=== PATIENT | male | born 1980 | race Caucasian/White ===

== ENCOUNTER 2021-06-09 02:41 | Inpatient (IN) | payer BC, SELFPAY ==
[2021-06-09] VITALS (24 sets, daily range): BP systolic 113–153; BP diastolic 70–105; PULSE 48–93; RESP 12–20; TEMP 36.7–36.8; O2SAT 96–100; BMI 30.5
--- NOTE | 2021-06-09 02:33 | PCM.HP.STD ---
HPI - General General Date of Admission: 06/09/21 HPI Narrative KANG SALMON, is a 40 M who presents to the emergency room from [facility] due to chest pain. Patient was laying on his couch at 6:30 this evening when he experienced epigastric and pain that radiated substernally and immediately caused nausea and vomiting and then turned into pain that radiated from his chest to both arms all the way to his wrists. He then sought attention in the emergency room where they was treated with nitroglycerin x3 doses and he states that after his third dose he found some relief from what he calls a chest pain of 4 out of 10 down to 3/10. To most folks the patient had denied smoking in his history however, he did confide in me that he has been vaping recently due to increased stress mostly at his workplace. 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 On his transport from [facility] to our facility the patient experienced relief of his pain symptoms but states since arriving he has had some resumption of that pain mostly in his left upper extremity. EKG is unchanged from his previous EKG in [facility]. His initial troponin in [facility] was less than 0.02 and a second was 0.06. We will obtain a stat troponin here and determine the next course of action as to whether to do a stress test or cardiac consult for catheterization. The patient julio as a father who had heart disease in his 50s. PFSH Home Medications NK 06/09/21 [History Last Taken Unknown] Allergy/AdvReac Type Severity Reaction Status Date / Time erythromycin base Allergy PT UNSURE Verified 06/09/21 01:47 OF REACTION Social History Smoking Status: Former smoker ROS Constitutional Constitutional: Denies anorexia, chills or fatigue Eyes Eyes: Denies blurry vision ENT HEENT: Denies abnormal hearing Cardiovascular Cardiovascular: Reports chest pain; Denies syncope Respiratory/Chest Respiratory/Chest: Denies cough Gastrointestinal Gastrointestinal: Reports abdominal pain, nausea and vomiting Genitourinary Genitourinary: Denies dysuria Musculoskeletal Musculoskeletal: Denies back pain Integumentary Integumentary: Denies dry skin Neurologic Neurologic: Denies abnormal gait Psychiatric Psychiatric: Reports anxiety Endocrine Endocrinology: Denies change in body appearance Vital Signs Vital Signs Vital Signs: 06/09/21 01:45 06/09/21 02:14 Temperature 98.1 F Temperature Source Oral Pulse Rate 77 82 Respiratory Rate 18 Blood Pressure 153/105 H Blood Pressure Mean 121 Blood Pressure Source Monitor Blood Pressure Position Semi-Fowlers Blood Pressure Location Right Arm Pulse Ox 100 Oxygen Delivery Method Room Air Weight Weight: 225 lb 4.999 oz Body Mass Index (BMI) 30.5 Physical Exam Const oriented x3 and no apparent distress General Appearance: cooperative HEENT normocephalic and head/scalp atraumatic Eyes PERRL Neck supple Lymph Lymphatic: no lymphadenopathy noted Resp normal respiratory effort and clear to auscultation bilaterally Cardio regular rate, regular rhythm, S1 normal heart sound and S2 normal heart sound GI normal to inspection, nondistended, normoactive bowel sounds Extremity no clubbing, cyanosis or edema Skin General Skin Exam: turgor normal Neuro CN's II-XII intact bilaterally Psych affect normal Assessment & Plan Assessment/Plan (1) Chest pain: PLAN: 1 chest pain rule out myocardial infarction?admit patient to progressive care unit obtain third troponin stat to determine if we going to do a stress test or cardiac consult for catheterization. The patient does have risk factors of nicotine dependency with vaping, family member with early heart disease in his father. He admits to recent high levels of stress at work. If stress test is negative patient can be discharged home however will need to address his epigastric pain and stress that may be gastritis. Will order the patient morphine, oxygen, nitroglycerin, aspirin per routine 2. DVT prophylaxis?low molecular weight heparin Charges/Coding Visit Charges OBSV E&M: 88860 Initial observation care L2
[2021-06-09 03:07] LABS: Troponin-I HS 1026 pg/mL (3.0-78.0)
[2021-06-09] MEDS: 0.9% Normal Saline 1,000 ML 75 ML IV ×2 (03:47→15:11)
[2021-06-09] MEDS: 0.9% Saline Lock 10 ML Syringe IV (03:47)
[2021-06-09 06:01] LABS: Absolute Lymphocyte Count 1.63 X10^3/uL (0.83-4.51); Absolute Neutrophil Count 8.4 X10^3/uL (2.0-7.7); Basophil# 0.01 X10^3/uL; Basophil% 0.1 % (0-1); Hemoglobin 16.3 g/dL (13.0-16.5); Lymphocyte # 1.63 X10^3/ul (0.83-4.51); Lymphocyte % 15.6 % (19-41); Mean Corp Hgb Conc 35.4 g/dL (32-36); Mean Corpuscular Hgb 29.8 pg (27.0-32.0); Mean Corpuscular Volume 84.1 fL (80-94); Mean Platelet Vol. 10.1 fl (6.2-12.0); Monocyte# 0.42 X10^3/uL; NRBC Flagged by Analyzer 0 % (0-5); Neutrophil # 8.38 X10^3/uL (2.7-7.7); Neutrophil % 79.9 % (47-70); Platelet Count 219 K/mm3 (150-450); RBC Distribution Width CV 12.2 % (11.6-14.6); RBC Distribution Width SD 36.7 fl (35.1-43.9); Red Blood Count 5.47 M/mm3 (4.6-6.2); White Blood Count 10.5 K/mm3 (4.4-11.0)
[2021-06-09] MEDS: Aspirin 325 MG Tablet PO (06:13)
[2021-06-09 06:26] LABS: International Normalized Ratio 1.1; Prothrombin Time (Protime)PT. 13.1 SECONDS (11.7-14.9)
[2021-06-09 06:30] LABS: Anion Gap 4 (5-15); BUN 11 mg/dL (7-18); BUN/Creat Ratio 11.2 RATIO (10-20); Calcium,Total 9.4 mg/dL (8.5-10.1); Chloride 106 mmol/L (98-107); Creatinine, Serum 0.98 mg/dL (0.70-1.30); EST Glomerular Filtration Rate 90 mL/min (>60); Est Glom Filt Rate - Afr Amer 108 mL/min (>60); Estimated Creatinine Clearance 109.98 ml/min; Glucose 124 mg/dL (74-106); Potassium 4.2 mmol/L (3.5-5.1); Sodium Level 137 mmol/L (136-145)
--- NOTE | 2021-06-09 06:51 | PCM.CONS.C ---
Assessment & Plan Assessment/Plan (1) Chest pain: PLAN: The patient presented as for chest discomfort and no EKG changes but has significant cardiac enzyme abnormalities. I did talk with him about the risk factors involved and suggested to him that he would benefit from a cardiac catheterization. The risk benefits alternatives have been explained to him he understands and agrees to proceed. The cardiac catheterization done today demonstrated the following: Normal left main coronary artery. Left anterior descending artery with mild diffuse disease. Left circumflex artery with mild diffuse disease. Dominant right coronary artery with 30% proximal stenosis in a posterior lateral vessel with a 95% subtotally occluded vessel with slow flow. Preserved left ventricular systolic function. Based on the above angiographic findings would recommend PCI to the above vessel. Above discussed with the patient who is in agreement. HPI Consult Data Date of Consult: 06/09/21 HPI Narrative HPI Narrative: KANG SALMON, is a 40 M who presents to the emergency room from [facility] due to chest pain. Patient was laying on his couch at 6:30 yesterday when he experienced epigastric and pain that radiated substernally and immediately caused nausea and vomiting and then turned into pain that radiated from his chest to both arms all the way to his wrists. He then sought attention in the emergency room where they was treated with nitroglycerin x3 doses and he states that after his third dose he found some relief from what he calls a chest pain of 4 out of 10 down to 3/10. To most folks the patient had denied smoking in his history however, he did confide in me that he has been vaping recently due to increased stress mostly at his workplace. 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 On his transport from [facility] to our facility the patient experienced relief of his pain symptoms but states since arriving he has had some resumption of that pain mostly in his left upper extremity. EKG is unchanged from his previous EKG in [facility]. His initial troponin in [facility] was less than 0.02 and a second was 0.06. He was transferred over here and his EKG was unremarkable but his troponin was markedly elevated. Currently he is pain-free. PFSH Home Medications NK 06/09/21 [History Last Taken Unknown] Allergy/AdvReac Type Severity Reaction Status Date / Time erythromycin base Allergy PT UNSURE Verified 06/09/21 01:47 OF REACTION Social History Smoking Status: Former smoker ROS Constitutional Constitutional: Denies fever(s) or weight loss Eyes Eyes: Reports systems reviewed and no addt'l complaints, except as documented ENT HEENT: Reports systems reviewed and no addt'l complaints, except as documented Cardiovascular Cardiovascular: Reports chest pain at rest; Denies chest pain with activity, dyspnea at rest, dyspnea on exertion, edema, palpitations or paroxysmal nocturnal dyspnea Respiratory/Chest Respiratory/Chest: Denies dyspnea on exertion, productive cough, shortness of breath at rest or shortness of breath with exertion Gastrointestinal Gastrointestinal: Reports nausea and vomiting; Denies change in bowel habits or weight changes Genitourinary Genitourinary: Denies difficulty urinating Musculoskeletal Musculoskeletal: Denies joint stiffness or muscle weakness Integumentary Integumentary: Denies lesions Neurologic Neurologic: Denies dizziness or syncope Psychiatric Psychiatric: Denies anxiety Endocrine Endocrinology: Denies excessive sweating or fatigue Hematologic/Lymphatic Hematologic/Lymphatic: Denies anemia Allergic/Immunologic Allergic/Immunologic: Denies seasonal rhinorrhea Physical Exam Const alert, oriented x3 and no apparent distress General Appearance: cooperative HEENT hearing grossly normal bilaterally Head and Scalp: atraumatic Eyes EOMs intact bilaterally Neck General: normal visual inspection Chest inspection of chest normal and palpation of chest normal Resp normal respiratory effort Auscultation: clear to auscultation bilaterally Cardio regular rate, regular rhythm, S1 normal heart sound and S2 normal heart sound Jugular Venous Distention: JVD GI normal to inspection, nondistended, normoactive bowel sounds Extremity normal capillary refill and no pedal edema Peripheral Pulses: Yes pulses 2+ throughout and femoral pulses present Skin no rashes or lesions noted Neuro oriented x3 and CN's II-XII intact bilaterally Psych Appearance: grossly normal and appropriate Risk Stratification Risk Stratification Applicable: Yes Age >/= 65: No >/= 3 CAD Risk Factors (HTN, HLD, DM, family hx of CAD, or current smoker): No Aspirin Use in the Past 7 Days: No Severe Angina (>/= episodes in 24 hours): No EKG ST Changes >/= 0.5mm: No Positive Cardiac Marker: Yes LORELEI Risk Stratification Score: 1 LORELEI % Risk: 5% Risk Objective Data Vital Signs: Vital Signs Temp Pulse Resp BP Pulse Ox 98.3 F 51 L 18 124/86 H 98 06/09/21 03:40 06/09/21 06:36 06/09/21 03:40 06/09/21 03:40 06/09/21 03:40 Oxygen Delivery Method Room Air Weight: 225 lb 4.999 oz Body Mass Index (BMI) 30.5 Lab / Micro Data Result Diagrams: 06/09/21 05:36 06/09/21 05:36 Labs: Laboratory Results - last 24 hr 06/09/21 02:40: Troponin I High Sens 1026 H* 06/09/21 05:36: WBC 10.5, RBC 5.47, Hgb 16.3, Hct 46.0, MCV 84.1, MCH 29.8, MCHC 35.4, RDW Std Deviation 36.7, RDW Coeff of Marialuisa 12.2, Plt Count 219, MPV 10.1, Immature Gran % (Auto) 0.400, Neut % (Auto) 79.9 H, Lymph % (Auto) 15.6 L, Brantley % (Auto) 4.0, Eos % (Auto) 0.0, Baso % (Auto) 0.1, Absolute Neuts (auto) 8.4 H, Absolute Lymphs (auto) 1.63, Nucleated RBC % 0 06/09/21 05:36: PT 13.1, INR 1.1 06/09/21 05:36: Sodium 137, Potassium 4.2, Chloride 106, Carbon Dioxide 27.0, Anion Gap 4 L, BUN 11, Creatinine 0.98, Estim Creat Clear Calc 109.98, Est GFR (MDRD) Af Amer 108, Est GFR (MDRD) Non-Af 90, BUN/Creatinine Ratio 11.2, Glucose 124 H, Calcium 9.4 06/09/21 05:36: Magnesium 2.0 Cardiology Labs/Tests 06/09/21 05:36: WBC 10.5, RBC 5.47, Hgb 16.3, Hct 46.0, MCV 84.1, MCH 29.8, MCHC 35.4, Plt Count 219, MPV 10.1, Immature Gran % (Auto) 0.400, Neut % (Auto) 79.9 H, Lymph % (Auto) 15.6 L, Brantley % (Auto) 4.0, Eos % (Auto) 0.0, Baso % (Auto) 0.1, Absolute Neuts (auto) 8.4 H, Nucleated RBC % 0 06/09/21 05:36: PT 13.1, INR 1.1 06/09/21 05:36: Sodium 137, Potassium 4.2, Chloride 106, Carbon Dioxide 27.0, Anion Gap 4 L, BUN 11, Creatinine 0.98, Est GFR (MDRD) Af Amer 108, Est GFR (MDRD) Non-Af 90, BUN/Creatinine Ratio 11.2, Glucose 124 H, Calcium 9.4 06/09/21 05:36: Magnesium 2.0 Rhythm: EKG: ECHO: Stress Test: Cardiac Cath: PCI: CT Surgery: Holter monitor: EPS: PPM: CXR: Chest CT Scan:
[2021-06-09 07:02] LABS: Troponin-I HS 4114 pg/mL (3.0-78.0)
--- NOTE | 2021-06-09 07:46 | NURSING ---
This RN called and gave report to MARQUIS Lemon at laboratory apparatus glass blower.
--- NOTE | 2021-06-09 09:01 | CL.D_ITS ---
Patient Name: KANG SALMON Study Date: 06/09/2021 Performing: Rodríguez Baeza MD Ht: 72.04 inches 183 cm : 1980 Wt: 224.87 lbs 102 kg Age: 40 Gender: male BSA: 2.24 PROCEDURE(S) PERFORMED DC01-(60185)LHC/COR/LV CLINICAL PROFILE AND INDICATIONS Indications: ACS <= 24 hrs Heart Failure: None Stress/Imaging Stress/Image Study Performed: No CONCLUSIONS Severe disease of the posterior lateral vessel of the right coronary artery with mild disease noted i n the left anterior descending artery and left circumflex artery RECOMMENDATIONS Referred for immediate PCI DESCRIPTION OF PROCEDURE The patient arrived to the procedure lab. The risks and benefits of the procedure as well as a full d escription of our services here and current unavailability of surgical backup were fully explained to the patient and/or their significant other prior to the catheterization. The Timeout was completed, verifying the correct patient and procedure. The patient's procedural site was prepped and draped in the usual fashion. Local anesthetic was given subcutaneously to right radial region with Lidocaine 2% . Using a modified Seldinger technique, arterial access was obtained via the right radial artery, a 6 Fr sheath was inserted. Right Coronary Artery selective angiography was then performed in multiple v iews using a 5 Fr. 4.0 Scarborough catheter. Left Coronary Artery selective angiography was performed in mu ltiple views using a 5 Fr. 4.0 Scarborough catheter. Left Ventriculography was performed in CASTANEDA projection using a 5 Fr. Pigtail catheter. LV to AO pullback pressures were then recorded. CORONARY ANGIOGRAPHY DOMINANCE: Right Dominant LEFT HEART ASSESSMENT Left Ventricular Ejection Fraction: by LV Gram 60 % Normal LV wall motion Normal Left Ventricular systolic function LEFT MAIN: Angiographically normal LEFT ANTERIOR DESCENDING ARTERY: Mild 30% proximal left anterior descending artery stenosis CIRCUMFLEX ARTERY: First tiny obtuse marginal branch with ostial stenosis and mid circumflex artery w ith mild disease but no high-grade obstructive disease RIGHT CORONARY ARTERY: PROX RCA: 30 % Stenosis MID RCA: Mild luminal irregularities less than 30% RT PLV: 95 % Stenosis COMPLICATIONS PROCEDURE MEDICATIONS Fentanyl 50 mcg IV Versed 1 mg IV Versed 1 mg IV Oxygen: 2 L/min via nasal cannula Benadryl 25 mg IV 06/09/2021 08:22:30 Brilinta 180 mg PO @ 06/09/2021 08:55:00 Heparin given IA 06/09/2021 08:35:53 Heparin 6000 unit(s) IV 06/09/2021 08:58:51 Solu-medrol 125 mg IV 06/09/2021 08:22:30 SUMMARY OF HEMODYNAMIC DATA Time AIR REST ECG 07:54:35 Art 184/95 (127) 08:19:38 AO 139/100 (120) SA 08:38:05 LV 137/17, 26 08:45:36 LV 130/15, 23 08:45:42 LV 138/17, 26 08:46:26 LVp 137/19, 27 08:46:36 AOp 147/96 (121) 08:46:41 Signed By Rodríguez Baeza MD On 06/09/2021 09:00:49 Rodríguez Baeza MD
--- NOTE | 2021-06-09 09:21 | CASEMGMT ---
According to the [facility] website, the following are in-network tertiary facilities: [facility], [facility], [facility], [facility], [facility], [facility], [facility], and . Ozzie CHO CM
--- NOTE | 2021-06-09 09:53 | PCI.CARDCATH ---
PCI Cardiac Cath Report PCI Report: 1. Successful PCI of 90% stenosis of proximal right posterolateral branch With predilatation using 2 x 12 mm balloon, followed by placement of drug-eluting stent MARCIO/Orsiro 2.25 x 18 mm Postdilated with 2.5 x 15 mm NC balloon. With reduction of stenosis from 90% to 0% and improvement of LORELEI flow from LORELEI I to LORELEI-3 flow. 2. Placement of TR band to right radial artery arteriotomy site. Consent; Risk and benefit of the procedure explained in detail to the patient elected to proceed informed consent obtained. Preprocedure diagnosis; 40-year-old patient who presented with symptoms of chest pain, has been under stress at his work And had significant family history of CAD father had a coronary artery stent. Based on the clinical presentation he underwent cardiac catheterization by his primary professor of environmental science Dr. Baeza Angiographic views had been reviewed and had high-grade lesion involving the proximal right posterolateral branch with a LORELEI I flow Had a large dominant RCA and had nonobstructive atherosclerosis involving the proximal circumflex and the mid LAD, left main: Normal LV systolic function is preserved. Interventional equipment used; 1. 6 Bermudian JR4 guide catheter 2. 0.014 BMW universal straight 190 cm wire 3. 0.014 run-through extra floppy 180 cm strut guidewire 4. 0.035 to 60 cm J exchange wire. 5. 2 x 12 mm balloon 6. 2.25 x 18 mm drug-eluting stent/MARCIO/Orsiro #7 2.5 x 15 mm NC Emerge balloon. Medication used in the [place] 1. Heparin a total of 9000 with an ACT level 237 given additional 2000 of heparin 2. Brilinta loaded with 180 mg stat in the [place] 3. Patient was given regular aspirin 325 mg. Access; 6 Bermudian sheath in the right radial artery Procedure in detail; We proceed with a 6 Bermudian JR4 guide advanced ascending aorta cannulated the right coronary ostium without difficulty Angiographic view obtained Then will proceed with a wire across the lesion in the posterolateral branch, followed by predilatation, followed by placement of a drug-eluting stent With the improvement of the LORELEI flow from LORELEI I to LORELEI III flow and reduction of stenosis from 90% to 0% Patient remained stable no symptoms of chest pain cardiac rehab nurse normal sinus and no complication in the [place] Conclusion and recommendation; 1. Successful PCI of high-grade proximal right posterolateral branch with the placement of drug-eluting stent 2. Patient to continue on DAPT Brilinta 90 mg twice daily and low-dose aspirin for 1 year. 3. Patient is scheduled for phase 1 cardiac rehab at [facility]/cardiology team 4. Patient to continue follow-up with the primary professor of environmental science Dr. Baeza for continuation of cardiac care plan Robin Lozada MD,FAC,[facility]
--- NOTE | 2021-06-09 10:00 | EKG12_ITS ---
Test Reason : POST PCI Blood Pressure : / mmHG Vent. Rate : 048 BPM Atrial Rate : 048 BPM P-R Int : 154 ms QRS Dur : 108 ms QT Int : 418 ms P-R-T Axes : 035 -13 014 degrees QTc Int : 373 ms Sinus bradycardia Otherwise normal ECG Confirmed by ARDEN AUSTIN, YANE ([id number]), development editor BETH MCCALL ([id number]) on 06/10/2021 8:53:45 AM Referred By: ELISA Confirmed By:YANE HER MD
--- NOTE | 2021-06-09 10:06 | ECHOD_ITS ---
Reason For Study: CHEST PAIN Procedure This was a 2D Doppler, Color Flow transthoracic echocardiogram. Exam performed portable in patient room. Left Ventricle Normal LV size. Left ventricular systolic function is normal. The estimated ejection fraction is 60 %. Normal diastology for age. No regional wall motion abnormalities noted. Right Ventricle Normal RV size. Normal systolic function. Atria Normal left atrium. Normal right atrium. Mitral Valve Normal mitral valve. Tricuspid Valve Normal tricuspid valve. Mild (1+) tricuspid valve insufficiency. Pulmonary artery systolic pressure is 30 mmHg. Aortic Valve Normal aortic valve. Trisinus/trileaflet aortic valve. Pulmonic Valve Normal pulmonic valve. Great Vessels Normal aortic root. The pulmonary artery is normal size. Normal inferior vena cava. Pericardium/Pleural No pericardial effusion. MMode/2D Measurements & Calculations LVIDd: 4.8 cm IVSd: 1.0 cm Ao root diam: 3.0 cm LVIDs: 2.9 cm LVPWd: 0.96 cm RVDd: 3.8 cm FS: 38.7 % LAV(MOD-bp): 43.3 ml LVAd ap4: 31.6 cm2 SV(MOD-sp4): 59.7 ml LAV(MOD-bp) Indexed: 19.3 ml/m2 LVLd ap4: 8.5 cm LAV(MOD-sp2): 41.4 ml EDV(MOD-sp4): 94.3 ml LAV(MOD-sp4): 39.3 ml EDV(sp4-el): 99.8 ml LVAs ap4: 17.0 cm2 LVLs ap4: 6.8 cm ESV(MOD-sp4): 34.6 ml ESV(sp4-el): 35.7 ml EF(MOD-sp4): 63.3 % EF(sp4-el): 64.2 % SV(sp4-el): 64.1 ml LA A4 area: 16.1 cm2 LA dimension(2D): 3.4 cm RA A4 area: 13.9 cm2 Time Measurements MV dec time: 0.15 sec Doppler Measurements & Calculations MV E max addi: 82.4 cm/sec Lat Peak E' Addi: 10.2 cm/sec Med Peak E' Addi: 9.1 cm/sec MV A max addi: 78.8 cm/sec E/E' lat: 8.1 E/E' med: 9.1 MV E/A: 1.0 Ao V2 max: 151.8 cm/sec LV V1 max: 125.5 cm/sec PA V2 max: 92.6 cm/sec Ao max P.2 mmHg LV V1 max P.3 mmHg TR max addi: 254.4 cm/sec TR max P.9 mmHg ECHO/Echo Complete Interpretation Summary Normal LV size. Left ventricular systolic function is normal. The estimated ejection fraction is 60 %. Pulmonary artery systolic pressure is 30 mmHg. Normal diastology for age. Ordering Physician: Diego Vallecillo Performed By: Zainab Sky RDCS
--- NOTE | 2021-06-09 10:30 | CRPH1.INST_ITS ---
General Education CAD and cardiac anatomy and function:: Patient communicates acknowledgment, Family communicates acknowledgment Explanation of diagnoses and procedures:: Patient communicates acknowledgment, Family communicates acknowledgment Sign/Symptoms of ND:: Patient communicates acknowledgment, Family communicates acknowledgment Antiplatelet therapy: Patient communicates acknowledgment, Family communicates acknowledgment Proper use of NTG-SL: Patient communicates acknowledgment, Family communicates acknowledgment Emergency procedures and activation of EMS: Patient communicates acknowledgment, Family communicates acknowledgment Compliance of all prescribed medications: Patient communicates acknowledgment, Family communicates acknowledgment Smoking Patient Nicotine/Smoking Risk Factors Are:: Non-smoker Recommendations Include:: Previous smoker; encourage continued cessation Nicotine/Smoking Response Code:: Patient communicates acknowledgment, Family communicates acknowledgment Dyslipidemia Recommendations Include:: Lipid profile not available Dyslipidemia Response Code:: Patient communicates acknowledgment, Family communicates acknowledgment Overweight/Obesity Patient Overweight/Obesity Risk Factors Are:: Obesity - > or = 30 Recommendations Include:: Weight loss of 5-10%, Reduced calorie diet, Exercise 5-7 times/week Overweight/Obesity:: Patient communicates acknowledgment, Family communicates acknowledgment Hypertension Patient Hypertension Risk Factors Are:: No documented hx of HTN Recommendations Include:: Maintain BP <130/85, DASH dietary guidelines, Decrease/maintain normal body weight, Moderation of ETOH Hypertension:: Patient communicates acknowledgment, Family communicates acknowledgment Heart Disease Patient Heart Disease Risk Factors Are:: Family history of heart disease < 65 y ears old, Previous cardiac event Recommendations Include:: Educated family members of their risk Heart Disease Response Code:: Patient communicates acknowledgment, Family communicates acknowledgment Diabetes Patient Diabetes Risk Factors Are:: No documented hx of diabetes Sedentary Patient Sedentary Risk Factors Are:: Lack of regular exercise Recommendations Include:: Aerobic exercise 5-7 times/week for 20-30 minutes continuously, Benefits of regular exercise, Discussed home walking program, Monitored Outpatient Cardiac Rehab Sedentary Response Code:: Patient communicates acknowledgment, Family communicates acknowledgment Stress Recommendations Include:: Identification of stressors, and assessment of coping skills, Stress management techniques Stress Response Code:: Patient communicates acknowledgment, Family communicates acknowledgment
--- NOTE | 2021-06-09 10:30 | CRPHASE1_ITS ---
Patient Communication PHII Cardiac Rehab Discussed with Patient:: Yes Guide to Cardiac Rehab Given to Patient:: Yes Cardiac Rehab Facility Choice List Given to Patient:: Yes Choice Program [facility] PHII:: Communication Given to CR Web Marketing Analyst:: Robin Lozada Phase II Cardiac Rehab:: Yes Sessions:: 36 sessions - 3 days/wk, 12 weeks Cardiac Rehabilitation Info Cardiac Rehabilitation Program Information: Cardiac Rehabilitation is important for patients like you who are recovering from a heart problem. Cardiac rehabilitation programs are recognized as integral to the continued care of the patient with coronary heart disease. The cardiac rehabilitation program is designed to optimize a patient's physical, psychological, and social functioning. Health health care specialist work in cardiac rehabilitation programs and assist you with getting the treatments you need to get stronger and healthier - like exercise, healthy eating habits, and medications. Cardiac rehabilitation has been show to help people with heart problems live longer and have better life enjoyment than people who do not go to cardiac rehabilitation. Please contact the Cardiac Rehabilitation Program at [facility] at in two weeks if you have not heard from them.
[2021-06-09] MEDS: Metoprolol Tartrate 25 MG Tablet 12.5 MG PO ×2 (11:02→21:36)
[2021-06-09] MEDS: Lisinopril 5 MG Tablet PO (11:02)
--- NOTE | 2021-06-09 11:27 | CASEMGMT ---
MARQUIS NYE assessment: Face to Face with patient for initial transition planning/care coordination assessment. MARQUIS NYE introduced self and role at [facility], pt voices understanding and consents to assessment. Pt is sitting up in bed in no distress on room air. Pt is A/Ox4 and answers all questions appropriately. Pt's is at bedside on phone during assessment. Care providers, pharmacy, and demographics verified. Presentation: Direct admit from [place] for chest pain Admitting dx: NSTEMI PCP: None-pt provided list of in-network providers Specialists: None currently Preferred Pharmacy: [facility] Insurance: [place] Prescription Benefit: [place] Living Will/HPOA: Pt does not have LW/HPOA and declines AD info. LNOK: Tez Richardson, Living Arrangements: Pt lives with in 1 story home with 4-5steps in and states no concerns at home. Pt is independent with ADL's. Transportation: Pt drives self and states no transportation concerns. DME/HHC: Pt does not have any DME or need for any further DME. Pt states no hx of HHC or SNF. Pt states no concerns with going home at time of discharge. 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 Pt states does not smoke cigarettes but has been vaping. Pt states does not drink ETOH. Pt states no further concerns/needs. CM to follow for Brilinta cost and any further discharge planning/needs. Advised pt to ask for CM if any further questions/concerns/needs arise, voices understanding. Pt goal: Home Plan: [place] MARQUIS NYE
--- NOTE | 2021-06-09 19:10 | PN.HOSP_ITS ---
Subjective Subjective Patient was seen and examined today, he underwent a cardiac catheterization which showed occlusive coronary disease in the right coronary artery, a drug- eluting stent was placed, I talked briefly with cardiology about his care. I also talked with the patient and his who was in the room at the time of my examination today after his heart catheterization. Objective Data Objective Data Vital Signs: Vital Signs Temp Pulse Resp BP Pulse Ox 98.2 F 62 18 116/72 97 06/09/21 18:00 06/09/21 18:00 06/09/21 18:00 06/09/21 18:00 06/09/21 18:00 Oxygen Delivery Method Room Air Weight: 102.2 kg Body Mass Index (BMI) 30.5 Intake & Output: Intake and Output for Last 24 Hours 06/07/21 06/08/21 06/09/21 23:59 23:59 23:59 Intake Total 1655 / 1655 Balance 1655 / 1655 Lab / Micro Data Result Diagrams: 06/09/21 05:36 06/09/21 05:36 Labs: Laboratory Results - last 24 hr 06/09/21 02:40: Troponin I High Sens 1026 H* 06/09/21 05:36: WBC 10.5, RBC 5.47, Hgb 16.3, Hct 46.0, MCV 84.1, MCH 29.8, MCHC 35.4, RDW Std Deviation 36.7, RDW Coeff of Marialuisa 12.2, Plt Count 219, MPV 10.1, I mmature Gran % (Auto) 0.400, Neut % (Auto) 79.9 H, Lymph % (Auto) 15.6 L, Sharkey % (Auto) 4.0, Eos % (Auto) 0.0, Baso % (Auto) 0.1, Absolute Neuts (auto) 8.4 H, Absolute Lymphs (auto) 1.63, Nucleated RBC % 0 06/09/21 05:36: PT 13.1, INR 1.1 06/09/21 05:36: Sodium 137, Potassium 4.2, Chloride 106, Carbon Dioxide 27.0, Anion Gap 4 L, BUN 11, Creatinine 0.98, Estim Creat Clear Calc 109.98, Est GFR (MDRD) Af Amer 108, Est GFR (MDRD) Non-Af 90, BUN/Creatinine Ratio 11.2, Glucose 124 H, Calcium 9.4 06/09/21 05:36: Troponin I High Sens 4114 H* 06/09/21 05:36: Magnesium 2.0 Radiography Diagnostic Testing: Radiology Impression Echocardiogram 06/09/21 10:06 Interpretation Summary Normal LV size. Left ventricular systolic function is normal. The estimated ejection fraction is 60 %. Pulmonary artery systolic pressure is 30 mmHg. Normal diastology for age. Ordering Physician: Diego Vallecillo Performed By: Zainab Sky RDCS Physical Exam Const alert, oriented x3, no apparent distress and healthy appearing General Appearance: cooperative, well kempt and well developed Orientation / Consciousness: awake, oriented to person, oriented to place and oriented to time HEENT normocephalic and moist oral mucous membranes Eyes PERRL, EOMs intact bilaterally and conjunctivae normal Neck nuchal rigidity, supple, no JVD and thyroid normal General: trachea midline Resp normal respiratory effort and clear to auscultation bilaterally Auscultation: Negative for rales, rhonchi or wheezes Cardio regular rate, regular rhythm, no murmurs, no rub and no gallops GI normal to inspection, nondistended, normoactive bowel sounds, soft to palpation, non-tender and non-distended Extremity no clubbing, cyanosis or edema Skin no rashes or lesions noted General Skin Exam: no breakdown Neuro oriented x3, CN's II-XII intact bilaterally, no focal motor deficits and no sensory deficits noted Sensorium / Orientation: awake and alert Speech: speech normal Psych affect normal Assessment & Plan Assessment/Plan (1) Chest pain: PLAN: 1. [id number] will remain on a beta-az, an CECE inhibitor, Brilinta, aspirin, and a statin. Patient will be reevaluated tomorrow #2 occlusive coronary artery disease right coronary artery-status post drug- eluting stent placement today, again patient will remain on the above medications, he will be reevaluated tomorrow for possible discharge in the morning. Charges/Coding Visit Charges Inpatient E&M: 18476 Subs Hosp L2
[2021-06-09] MEDS: Atorvastatin Calcium 40 MG Tablet PO (21:36)
[2021-06-09] MEDS: TICAGRELOR 90 MG TABLET PO (21:36)
[2021-06-09] MEDS: Enoxaparin 40 MG/0.4 ML Syringe SC (21:37)
[2021-06-10 03:00] VITALS: PULSE 72
[2021-06-10 03:15] VITALS: BP 103/55; PULSE 68; RESP 18; TEMP 36.8; O2SAT 98
[2021-06-10] MEDS: 0.9% Normal Saline 1,000 ML 75 ML IV (05:16)
[2021-06-10 05:17] LABS: Hematocrit 40.6 % (40-54); Mean Corp Hgb Conc 34.5 g/dL (32-36); Mean Corpuscular Hgb 29.3 pg (27.0-32.0); Mean Corpuscular Volume 84.9 fL (80-94); Mean Platelet Vol. 10.5 fl (6.2-12.0); Platelet Count 171 K/mm3 (150-450); RBC Distribution Width CV 12.7 % (11.6-14.6); RBC Distribution Width SD 38.8 fl (35.1-43.9); Red Blood Count 4.78 M/mm3 (4.6-6.2); White Blood Count 13.6 K/mm3 (4.4-11.0)
[2021-06-10 05:45] LABS: ALB/GLOB Ratio 1.1 RATIO (0.9-2.4); AST(SGOT) 104 U/L (15-37); Alanine Aminotransfer ALT/SGPT 48 U/L (16-61); Albumin, Serum 3.3 g/dL (3.2-5.0); Alkaline Phosphatase 61 U/L (45-117); Anion Gap 4 (5-15); BUN 18 mg/dL (7-18); BUN/Creat Ratio 23.9 RATIO (10-20); Calcium,Total 8.4 mg/dL (8.5-10.1); Chloride 107 mmol/L (98-107); Creatinine, Serum 0.75 mg/dL (0.70-1.30); EST Glomerular Filtration Rate 121 mL/min (>60); Est Glom Filt Rate - Afr Amer 147 mL/min (>60); Globulin 3.1 g/dL (2.2-4.2); Glucose 111 mg/dL (74-106); Potassium 3.9 mmol/L (3.5-5.1); Protein, Total 6.4 g/dL (6.4-8.2); Sodium Level 137 mmol/L (136-145)
[2021-06-10 06:30] VITALS: PULSE 47
[2021-06-10 07:24] VITALS: O2SAT 97
[2021-06-10 09:08] VITALS: BP 115/85; PULSE 61; RESP 18; TEMP 36.9; O2SAT 97
[2021-06-10] MEDS: TICAGRELOR 90 MG TABLET PO (09:09)
[2021-06-10 09:10] VITALS: PULSE 61
[2021-06-10] MEDS: Lisinopril 5 MG Tablet PO (09:10)
[2021-06-10] MEDS: Metoprolol Tartrate 25 MG Tablet 12.5 MG PO (09:10)
[2021-06-10] MEDS: Aspirin E.C. 81 MG Tablet PO (09:10)
[2021-06-10] MEDS: Enoxaparin 40 MG/0.4 ML Syringe SC (09:11)
--- NOTE | 2021-06-10 09:54 | PCM.DC ---
Discharge Instructions Diet Discharge Diet: No restrictions Activity Discharge Activity: Return to Normal Activity Return to work on:: 06/17/21 Weight Bearing Status: Full weight bearing Follow Up Care Test Results: Test results from this visit will be discussed in further detail at your follow-up appointment, if applicable. Discharge Plan Admission Admit Date/Time: 06/09/21 02:41 Primary Reason for Your Visit: NSTEMI Attending Provider: Diego Vallecillo Consulting Providers: Rodríguez Baeza Discharge Orders/Prescriptions Prescriptions: New atorvastatin 40 mg Tablet 40 mg PO DAILY Qty: 30 RF: 0 aspirin 81 mg Tablet,Delayed Release (Dr/Ec) 81 mg PO DAILY@0800 Qty: 0 RF: 0 lisinopril 5 mg Tablet 5 mg PO DAILY Qty: 30 RF: 0 metoprolol tartrate 25 mg Tablet 12.5 mg PO BID Qty: 30 RF: 0 Brilinta 90 mg Tablet 90 mg PO BID Qty: 60 RF: 0 Referrals / Follow Up: Rodríguez Beaza MD [STAFF PHYSICIAN] - See Referral Note (office will call to schedule appointment-call office next week if you have not heard from them) Disposition Disposition (needs filled in before D/C Order can be placed): Home, Self Care
--- NOTE | 2021-06-10 09:59 | DS.PCM_ITS ---
Providers Date of Admission: 06/09/21 Date of Discharge: 06/10/21 Consultations 06/09/21 03:13 Consult: Cardiology Routine Consulting Provider: Rodríguez Baeza Reason for Consult: elevated troponin EMERGENT Consult: No MD Notified: Yes Date Notified: 06/09/21 Time Notified: 03:13 Method of Notification: Text Comments:: [place] to send text Reason For Visit: CHEST PAIN RULE OUT PR Diagnosis Discharge Diagnosis (1) Chest pain: Status: Resolved Code(s): R07.9 - Chest pain, unspecified Plan: 1. Non-STEMI #2 occlusive coronary artery disease right coronary artery #3 nonocclusive coronary artery disease Medications at Discharge Home Medications aspirin 81 mg PO DAILY@0800 #0 tab 06/10/21 atorvastatin 40 mg PO DAILY #30 tab 06/10/21 lisinopril 5 mg PO DAILY #30 tab 06/10/21 metoprolol tartrate 12.5 mg PO BID #30 tab 06/10/21 ticagrelor [Brilinta] 90 mg PO BID #60 tab 06/10/21 Hospital Course Procedures 2-D Echocardiogram and Cardiac catheterization (With drug-eluting stent in the right coronary artery) Summary of Care Provided Minutes Spent on Discharge: 31 Hospital Course: 40-year-old white male was admitted to PCU as a direct admission from [facility] with a diagnosis of chest pain, he had been given nitroglycerin in the emergency room at [facility] with some relief of his chest discomfort. Patient's troponin in [facility] was less than 0.02 and the second troponin was 0.06. Cardiac enzymes that were repeated here at [facility] were elevated, he was seen in consultation by cardiology who performed a cardiac catheterization which showed evidence of nonocclusive coronary artery disease but also evidence of a 95% subtotally occluded right coronary artery. He underwent placement of a MARCIO in this artery, he had no complications following the procedure, he had an echocardiogram which showed preserved ejection fraction. On 06/10/2021, patient was seen and examined: On examination he appeared in good health and spirits. Vital signs as documented. Skin warm and dry and without overt rashes. Neck without JVD, neck was supple, trachea midline, thyroid was normal. Lungs clear bilaterally, normal air movement was noted. Heart exam notable for regular rhythm, normal sounds and absence of murmurs, rubs or gallops. Abdomen unremarkable and without evidence of organomegaly, masses, or abdominal aortic enlargement. Bowel sounds are present, abdomen is not distended. Extremities nonedematous, no cyanosis was noted, no clubbing was noted. Neuro: Cranial nerves II through XII are grossly intact, no focal motor deficits were noted, sensation to light touch and pinprick intact, motor exam 5/5 throughout. Psych: Patient is alert and oriented x3, he does not appear anxious or depressed, he does not appear agitated. Patient was felt to be stable for discharge on 06/10/2021. Weight / BMI Weight Weight: 102.2 kg Body Mass Index (BMI) 30.5 ABG / Lab / Microbiology Data Result Diagrams: 06/10/21 04:48 06/10/21 04:48 Laboratory: Laboratory Results - last 24 hr 06/10/21 04:48: WBC 13.6 H, RBC 4.78, Hgb 14.0, Hct 40.6, MCV 84.9, MCH 29.3, MCHC 34.5, RDW Std Deviation 38.8, RDW Coeff of Marialuisa 12.7, Plt Count 171, MPV 10.5 06/10/21 04:48: Sodium 137, Potassium 3.9, Chloride 107, Carbon Dioxide 26.0, Anion Gap 4 L, BUN 18, Creatinine 0.75, Estim Creat Clear Calc 143.70, Est GFR (MDRD) Af Amer 147, Est GFR (MDRD) Non-Af 121, BUN/Creatinine Ratio 23.9 H, Glucose 111 H, Calcium 8.4 L, Total Bilirubin 0.50, AST 104 H, ALT 48, Alkaline Phosphatase 61, Total Protein 6.4, Albumin 3.3, Globulin 3.1, Albumin/Globulin Ratio 1.1 Radiography Diagnostic Testing: Radiology Impression Echocardiogram 06/09/21 10:06 Interpretation Summary Normal LV size. Left ventricular systolic function is normal. The estimated ejection fraction is 60 %. Pulmonary artery systolic pressure is 30 mmHg. Normal diastology for age. Ordering Physician: Diego Vallecillo Performed By: Zainab Sky RDCS D/C Instructions Discharge Diet: No restrictions Return to work on: 06/17/21 Weight Bearing Status: Full weight bearing Meaningful Use Info Meaningful Use Diagnoses (Choose all that apply): AMI AMI/Post PCI/Angioplasty Aspirin given w/in 24hrs of arrival?: Yes ASA at discharge?: Yes Antiplatelet Therapy at Discharge:: Yes Statins at discharge?: Yes Uli/ARB at discharge?: Yes Beta Agustina at discharge?: Yes Done w/ Acute PR measure.: Yes Documented LVEF (%): 60 Discharge Plan Admission Admit Date/Time: 06/09/21 02:41 Primary Reason for Your Visit: NSTEMI Attending Provider: Diego Vallecillo Consulting Providers: Rodríguez Baeza Discharge Orders/Prescriptions Prescriptions: New atorvastatin 40 mg Tablet 40 mg PO DAILY Qty: 30 RF: 0 aspirin 81 mg Tablet,Delayed Release (Dr/Ec) 81 mg PO DAILY@0800 Qty: 0 RF: 0 lisinopril 5 mg Tablet 5 mg PO DAILY Qty: 30 RF: 0 metoprolol tartrate 25 mg Tablet 12.5 mg PO BID Qty: 30 RF: 0 Brilinta 90 mg Tablet 90 mg PO BID Qty: 60 RF: 0 Referrals / Follow Up: Rodríguez Baeza MD [STAFF PHYSICIAN] - See Referral Note (office will call to schedule appointment-call office next week if you have not heard from them) Disposition Disposition (needs filled in before D/C Order can be placed): Home, Self Care Charges/Coding Visit Charges Inpatient E&M: 53353 Disch Hosp
--- NOTE | 2021-06-10 10:00 | EKG12_ITS ---
Test Reason : CP ADMISSION Blood Pressure : / mmHG Vent. Rate : 064 BPM Atrial Rate : 064 BPM P-R Int : 160 ms QRS Dur : 106 ms QT Int : 376 ms P-R-T Axes : 034 -04 017 degrees QTc Int : 387 ms Normal sinus rhythm Normal ECG Confirmed by ARDEN AUSTIN, YANE ([id number]), makeup editor BETH MCCALL ([id number]) on 06/10/2021 8:54:19 AM Referred By: MARYCARMEN Confirmed By:YANE HER MD
--- NOTE | 2021-06-10 10:00 | EKG12_ITS ---
Test Reason : AM EKG Blood Pressure : / mmHG Vent. Rate : 050 BPM Atrial Rate : 050 BPM P-R Int : 148 ms QRS Dur : 098 ms QT Int : 428 ms P-R-T Axes : 036 -16 009 degrees QTc Int : 390 ms Sinus bradycardia Inferior infarct , age undetermined Abnormal ECG When compared with ECG of 09-JUN-2021 09:52, MANUAL COMPARISON REQUIRED, DATA IS UNCONFIRMED Confirmed by FERNANDO AUSTIN, DESTINEE ([id number]), graphic editor BETH MCCALL ([id number]) on 06/11/2021 9:31:59 AM Referred By: RAYRAY Confirmed By:DESTINEE KING MD
--- NOTE | 2021-06-10 10:11 | CASEMGMT ---
Addendum entered by Leisa Silva 06/10/21 10:27: Per pharmacy, pt's co-pay is $24.99 for Brilinta. Pt updated, voices understanding. Ozzie CHO CM Original Note: Pt provided with Brilinta co-pay card with instructions. This MARQUIS NYE to call [facility] in [place] to check on co-pay. Ozzie CHO CM
== END 2021-06-10 11:06 | disposition home or self-care (01) | DRG 247 ==
PROVIDERS: Internal Medicine Interventional Cardiology; Admitting Provider Family Medicine; Visit Provider Internal Medicine
DX: I21.4 Non-ST elevation (NSTEMI) myocardial infarction (principal); F17.290 Nicotine dependence, other tobacco product, uncomplicated; I25.10 Atherosclerotic heart disease of native coronary artery without angina pectoris; Z56.6 Other physical and mental strain related to work
CPT/HCPCS: 36415; 80048; 80053; 83735; 84484; 85025; 85027; 85610; 92928; 93005; 93306; 93458; 97802; 99152; 99153; 99406; C1874; J7030; A4216; C1725; C1769; C1887; C1894; C9600; Q9967

== ENCOUNTER → 2021-08-08 | Outpatient (CLI) | payer BC, SELFPAY ==
[2021-08-08 09:18] LABS: AST(SGOT) 21 U/L (15-37); Alanine Aminotransfer ALT/SGPT 40 U/L (16-61); Albumin, Serum 3.9 g/dL (3.2-5.0); Alkaline Phosphatase 79 U/L (45-117); Bilirubin, Direct 0.15 mg/dL (0.00-0.30); Cholesterol 105 mg/dL (200); Globulin 3.4 g/dL (2.2-4.2); High Density Lipoprotein 39 mg/dL; Protein, Total 7.3 g/dL (6.4-8.2); Triglycerides 62 mg/dL; Very Low Density Lipoprotein 12 mg/dL (5-40)
== END | disposition home or self-care (01) ==
LOC: LAB 08:29
PROVIDERS: Referring Provider Nurse Practitioner Gerontology; Visit Provider Nurse Practitioner Gerontology
DX: I25.10 Atherosclerotic heart disease of native coronary artery without angina pectoris (principal)
CPT/HCPCS: 36415; 80061; 80076

== ENCOUNTER → 2022-05-15 | Outpatient (CLI) | payer BC, SELFPAY ==
[2022-05-15 08:30] LABS: Absolute Lymphocyte Count 2.46 X10^3/uL (0.83-4.51); Absolute Neutrophil Count 3.3 X10^3/uL (2.0-7.7); Basophil# 0.03 X10^3/uL; Basophil% 0.5 % (0-1); Eosinophil# 0.06 X10^3/uL; Hemoglobin 15.1 g/dL (13.0-16.5); Lymphocyte # 2.46 X10^3/ul (0.83-4.51); Lymphocyte % 39.4 % (19-41); Mean Corp Hgb Conc 34.3 g/dL (32-36); Mean Corpuscular Hgb 29.6 pg (27.0-32.0); Mean Corpuscular Volume 86.3 fL (80-94); Monocyte# 0.39 X10^3/uL; Monocyte% 6.3 % (0-10); NRBC Flagged by Analyzer 0 % (0-5); Neutrophil # 3.29 X10^3/uL (2.7-7.7); Neutrophil % 52.6 % (47-70); Platelet Count 216 K/mm3 (150-450); RBC Distribution Width CV 12.3 % (11.6-14.6); RBC Distribution Width SD 38.5 fl (35.1-43.9); White Blood Count 6.2 K/mm3 (4.4-11.0)
[2022-05-15 09:31] LABS: AST(SGOT) 17 U/L (15-37); Alanine Aminotransfer ALT/SGPT 33 U/L (16-61); Albumin, Serum 3.7 g/dL (3.2-5.0); Alkaline Phosphatase 81 U/L (45-117); Anion Gap 3 (5-15); BUN 15 mg/dL (7-18); Bilirubin, Direct 0.15 mg/dL (0.00-0.30); Calcium,Total 9.4 mg/dL (8.5-10.1); Chloride 106 mmol/L (98-107); Cholesterol 111 mg/dL (200); Creatinine, Serum 0.88 mg/dL (0.70-1.30); EST Glomerular Filtration Rate 101 mL/min (>60); Est Glom Filt Rate - Afr Amer 122 mL/min (>60); Globulin 3.8 g/dL (2.2-4.2); Glucose 94 mg/dL (74-106); High Density Lipoprotein 39 mg/dL; Potassium 4.9 mmol/L (3.5-5.1); Protein, Total 7.5 g/dL (6.4-8.2); Sodium Level 139 mmol/L (136-145); Thyroid Stim Hormone (TSH) 2.43 uIU/mL (0.358-3.74); Triglycerides 68 mg/dL; Very Low Density Lipoprotein 14 mg/dL (5-40)
== END | disposition home or self-care (01) ==
LOC: LAB 07:16
PROVIDERS: Referring Provider Nurse Practitioner Gerontology; Visit Provider Nurse Practitioner Gerontology
DX: R53.83 Other fatigue (principal); Z95.5 Presence of coronary angioplasty implant and graft
CPT/HCPCS: 36415; 80048; 80061; 80076; 82306; 84443; 85025

== ENCOUNTER 2023-01-11 17:02 | Emergency (ER) | payer BC, SELFPAY ==
[2023-01-11 17:02] VITALS: BP 149/90; PULSE 84; RESP 18; TEMP 36.1; O2SAT 98; BMI 26.9
--- NOTE | 2023-01-11 17:44 | EX.ED.DYSGE1 ---
HPI History of Present Illness Chief Complaint: Constipation Informant: patient Onset/Context/Timing Onset: Days (5 days) Narrative Narrative: Patient present secondary to constipation. He states he usually will have a bowel movement every 2 to 3 days. He has not been able to pass stool since last Tuesday. He has been passing gas but not as much is normal. He tried MiraLAX today as well as a bisacodyl suppository. He is able to pass only a small amount of liquid following this. He denies any prior abdominal surgeries. No nausea or vomiting. [facility] Medical History Atherosclerotic heart disease of [place] coronary artery without angina pectoris History of skull fracture (~1991) Non-STEMI (non-ST elevated myocardial infarction) (06/09/21) Obesity Home Medications aspirin 81 mg tablet,delayed release 81 mg PO DAILY@0800 #90 tabs 07/10/21 [Rx Last Taken Unknown] clopidogrel 75 mg tablet 75 mg PO DAILY #90 tabs 08/31/22 [Rx Last Taken Unknown] metoprolol succinate 25 mg tablet,extended release 24 hr (Toprol XL) 25 mg PO DAILY #90 tabs 08/31/22 [Rx Last Taken Unknown] atorvastatin 40 mg tablet 40 mg PO DAILY #90 tabs 11/14/22 [Rx Last Taken Unknown] ticagrelor 90 mg tablet (Brilinta) 90 mg PO DAILY 01/11/23 [History Last Taken Unknown] Allergy/AdvReac Type Severity Reaction Status Date / Time erythromycin base Allergy PT UNSURE Verified 01/11/23 17:04 OF REACTION Family History Mother Cardiomyopathy CAD (coronary artery disease) Stents Heart disease Father CAD (coronary artery disease) CABG x 4, stents Heart disease Surgical History History of coronary artery stent placement (06/09/21) Social History Smoking Status: Former smoker how long ago did patient quit smoking: September 2020 alcohol intake: never substance use type: does not use caffeine: Yes Type: carbonated beverages Number of servings: 2, coffee and tea ROS ROS ED Constitutional Constitutional ED: Denies chills or fever(s) Eyes Eyes: Denies discharge from eye(s) ENT ENT ED: Denies discharge from eye(s), rhinorrhea or sore throat Cardiovascular Cardiovascular: Denies chest pain or palpitations Respiratory/Chest Respiratory/Chest: Denies cough or dyspnea Gastrointestinal Gastrointestinal: Reports constipation and other Details: Rectal pain ; Denies diarrhea, nausea or vomiting Genitourinary Genitourinary ED: Denies dysuria Musculoskeletal Musculoskeletal: Denies back pain or extremity pain Integumentary Denies Abrasions or rash Neurologic Neurologic: Denies headache(s) or weakness Psychiatric Psychiatric: Denies anxiety or depression Allergic/Immunologic Allergic/Immunologic ED: Denies lip swelling or urticaria EXAM Physical Exam Const Vital Signs: 01/11/23 17:02 Temperature 97 F L Temperature Source Temporal Pulse Rate 84 Respiratory Rate 18 Blood Pressure 149/90 H Blood Pressure Mean 109 Pulse Ox 98 Oxygen Delivery Method Room Air Positive well nourished and well developed General Appearance ED: well developed HEENT Reports normocephalic and head/scalp atraumatic Eyes PERRL and EOMs intact bilaterally Neck supple Chest Wall inspection of chest normal and palpation of chest normal Resp normal respiratory effort and clear to auscultation bilaterally Cardio regular rate and regular rhythm GI non-tender Auscultation: normoactive bowel sounds Palpation: soft Extremity normal to inspection Neuro oriented x3 and no sensory deficits noted Sensorium / Orientation: alert Motor Exam: strength 5/5 throughout Psych mental status grossly normal Skin no rashes or lesions noted MDM MDM MDM Narrative Medical decision making narrative: Abdominal x-ray obtained to evaluate bowel gas pattern, obstruction. Radiography Diagnostic Testing: Clinical Impression(s) from Imaging Studies KUB X-Ray 01/11/23 17:50 IMPRESSION: Normal x-ray examination of the abdomen and pelvis. Electronically Signed: Lencho Mcconnell MD at 18:11 EDT , Treatment and Re-Evaluation :: Abdominal x-ray per my interpretation does reveal some stool in the rectum as well as in the descending colon. No evidence of bowel obstruction. Radiology interpretation is reviewed and feels he has a normal abdominal x-ray. Soapsuds enema was ordered, however patient is reluctant to try this. I offered a digital rectal exam to ensure no masses and possible disimpaction. He declines this as well. He states that he wants to just go home and try to take care of it himself. He is encouraged to return if he has any further symptoms or concerns. Discharge Plan Triage Chief Complaint: Constipation ED Provider: Wendy Wise Dx/Rx/DC Orders Clinical Impression: Constipation Instructions: ED Constipation (Adult) Prescriptions: No Action clopidogrel 75 mg tablet 75 mg PO DAILY Qty: 90 3RF metoprolol succinate [Toprol XL] 25 mg tablet extended release 24 hr 25 mg PO DAILY Qty: 90 3RF Brilinta 90 mg tablet 90 mg PO DAILY Patient Comments: TAKE 1 TABLET BY MOUTH TWICE DAILY aspirin 81 mg tablet,delayed release (DR/EC) 81 mg PO DAILY@0800 Qty: 90 4RF atorvastatin 40 mg tablet 40 mg PO DAILY Qty: 90 4RF Primary Care Provider: Care Physician,No Primary Referrals: Mirella Coles MD [Med Staff - Paperback Machine Operator] - As Needed Care Physician,No Primary [Primary Care Provider] - Disposition Disposition: Home, Self Care
--- NOTE | 2023-01-11 17:50 | RAD_ITS ---
STUDY: X-RAY - ABDOMEN/PELVIS REASON FOR EXAM: Male, 42 years old. constipation TECHNIQUE: Single AP view of the abdomen / pelvis. COMPARISON: None. FINDINGS: Normal visualized lung bases. There is an unremarkable bowel gas pattern. The visualized liver, spleen and kidneys are grossly normal in size and morphology. Normal soft tissue structures. Normal visualized osseous structures. RAD/Abdomen Single View IMPRESSION: Normal x-ray examination of the abdomen and pelvis. Electronically Signed: Lencho Mcconnell MD at 18:11 EDT ,
[2023-01-11 18:43] VITALS: BP 148/89; PULSE 90; RESP 16; TEMP 36.9; O2SAT 97
== END 2023-01-11 18:44 | disposition home or self-care (01) ==
PROVIDERS: Emergency Provider Emergency Medicine; Visit Provider Emergency Medicine
DX: K59.00 Constipation, unspecified (principal); I25.10 Atherosclerotic heart disease of native coronary artery without angina pectoris; Z87.891 Personal history of nicotine dependence
CPT/HCPCS: 74018; 99282

== ENCOUNTER → 2023-11-05 | Outpatient (CLI) | payer BC, SELFPAY ==
[2023-11-05 07:50] LABS: Absolute Lymphocyte Count 2.58 X10^3/uL (0.83-4.51); Absolute Neutrophil Count 3.2 X10^3/uL (2.0-7.7); Basophil# 0.02 X10^3/uL; Basophil% 0.3 % (0-1); Eosinophil# 0.05 X10^3/uL; Eosinophils% 0.8 % (0-5); Hematocrit 43.6 % (40-54); Hemoglobin 14.8 g/dL (13.0-16.5); Lymphocyte # 2.58 X10^3/ul (0.83-4.51); Lymphocyte % 40.7 % (19-41); Mean Corp Hgb Conc 33.9 g/dL (32-36); Mean Corpuscular Hgb 29.4 pg (27.0-32.0); Mean Corpuscular Volume 86.5 fL (80-94); Mean Platelet Vol. 10.1 fl (6.2-12.0); Monocyte# 0.48 X10^3/uL; Monocyte% 7.6 % (0-10); NRBC Flagged by Analyzer 0 % (0-5); Neutrophil % 50.4 % (47-70); Platelet Count 180 K/mm3 (150-450); RBC Distribution Width CV 12.2 % (11.6-14.6); RBC Distribution Width SD 39.1 fl (35.1-43.9); Red Blood Count 5.04 M/mm3 (4.6-6.2); White Blood Count 6.3 K/mm3 (4.4-11.0)
[2023-11-05 08:10] LABS: AST(SGOT) 17 U/L (15-37); Alanine Aminotransfer ALT/SGPT 26 U/L (16-61); Albumin, Serum 3.7 g/dL (3.2-5.0); Alkaline Phosphatase 91 U/L (45-117); Anion Gap 3 (5-15); BUN 15 mg/dL (7-18); BUN/Creat Ratio 17.3 RATIO (10-20); Bilirubin, Direct 0.15 mg/dL (0.00-0.30); Calcium,Total 9.1 mg/dL (8.5-10.1); Chloride 106 mmol/L (98-107); Cholesterol 97 mg/dL (200); Creatinine, Serum 0.87 mg/dL (0.70-1.30); EST Glomerular Filtration Rate 102 mL/min (>60); Est Glom Filt Rate - Afr Amer 124 mL/min (>60); Globulin 3.6 g/dL (2.2-4.2); Glucose 89 mg/dL (74-106); High Density Lipoprotein 43 mg/dL; Protein, Total 7.3 g/dL (6.4-8.2); Sodium Level 139 mmol/L (136-145); Triglycerides 52 mg/dL; Very Low Density Lipoprotein 10 mg/dL (5-40)
[2023-11-05 08:18] LABS: Hemoglobin A1c 5.1 % (3.8-5.6)
== END | disposition home or self-care (01) ==
LOC: LAB 06:57
PROVIDERS: Referring Provider Nurse Practitioner Family; Visit Provider Nurse Practitioner Family
DX: E66.9 Obesity, unspecified (principal); E78.2 Mixed hyperlipidemia; R53.83 Other fatigue; Z95.5 Presence of coronary angioplasty implant and graft
CPT/HCPCS: 36415; 80048; 80061; 80076; 83036; 85025

== ENCOUNTER → 2024-12-18 | Outpatient (CLI) | payer BC, SELFPAY ==
[2024-12-18 14:56] LABS: AST(SGOT) 26 U/L (<=37); Alanine Aminotransfer ALT/SGPT 31 U/L (<=46); Albumin, Serum 4.3 g/dL (3.5-5.0); Alkaline Phosphatase 84 U/L (40-129); Bilirubin, Direct 0.19 mg/dL (0.00-0.30); Cholesterol 144 mg/dL (<=200); Globulin 2.9 g/dL (2.2-4.2); Low Density Lipoprotein Calc. 61 mg/dL; Triglycerides 159 mg/dL; Very Low Density Lipoprotein 32 mg/dL (5-40); cholesterol:hdl ratio screen 2.82
== END | disposition home or self-care (01) ==
LOC: LAB 13:54
PROVIDERS: Referring Provider Internal Medicine Cardiovascular Disease; Visit Provider Internal Medicine Cardiovascular Disease
DX: E78.2 Mixed hyperlipidemia (principal)
CPT/HCPCS: 36415; 80061; 80076

== ENCOUNTER → 2025-01-18 | Outpatient (CLI) | payer BC, SELFPAY ==
--- NOTE | 2025-01-19 10:38 | STRESSREP_ITS ---
Stress Test Report
--- NOTE | 2025-01-19 10:38 | STRESSREP ---
Stress Test Report Exercise myocardial perfusion stress test. 44-year-old man with a history of coronary disease. Stress protocol: Resting EKG demonstrates normal sinus rhythm with a rate of 51 bpm resting blood pressure is 128/80 mmHg. The patient exercised according to the regular [facility] protocol for a total duration of 8 minutes attaining a maximum heart rate of 164 bpm which was 93% of maximum predicted heart rate; the maximum workload was 10.1 metabolic equivalents. At rest there were no ST or T wave changes noted to suggest ischemia and at peak exercise upsloping ST changes only were noted which did not meet the criteria for ischemia. No clinical angina was noted the test was terminated due to the target heart rate being achieved/fatigue. The peak blood pressure was 160/70 mmHg. Rate-pressure product was 26,200. Myocardial perfusion protocol. 14.1 mCi of technetium 99m sestamibi was injected at rest. The patient exercised according to regular Moiz protocol for total duration of 8 minutes and at peak exercise 43.3 mCi of technetium 99m sestamibi was injected stress images were obtained stress and rest images were reconstructed in comparing the short axis vertical long and horizontal long axis. Gated images were also obtained. Perfusion SPECT analysis: Review of the stress images demonstrate normal uptake of tracer noted in all areas of the myocardium. There is a small zone in the inferolateral wall with reduced perfusion and on the resting images improves suggesting an area of inferolateral ischemia noted at a high workload. No previous infarct is noted Gated SPECT analysis: The gated ejection fraction is 57%. Conclusion: Abnormal exercise myocardial perfusion stress test at a high workload. Evidence of inferolateral ischemia noted
--- NOTE | 2025-01-23 12:46 | HP.PCM_ITS ---
History and Physical
--- NOTE | 2025-01-23 12:46 | PCM.HP.BLA ---
History and Physical Date of Admission: 02/18/25 KANG SALMON, is a 44 M who presents to the [facility] director for a cardiac catheterization following an abnormal stress test. He presented to the emergency room from [facility] due to chest pain in May of 2021. He was transferred to [facility], and underwent a cardiac catheterization which demonstrated severe disease of the posterior lateral vessel of the right coronary artery with mild disease noted in the left anterior descending artery and left circumflex artery. He underwent a drug-eluting stent to his proximal RPLB. Intake Vital Signs See EMR Allergies See EMR Medications See EMR Ejection fraction %: 60 PFSH Medical History History of skull fracture (~1991) Obesity Non-STEMI (non-ST elevated myocardial infarction) (06/09/21) Atherosclerotic heart disease of havasupai coronary artery without angina pectoris Surgical History History of coronary artery stent placement (06/09/21) Family History Mother Cardiomyopathy CAD (coronary artery disease) Stents Heart disease Father CAD (coronary artery disease) CABG x 4, stents Heart disease 40s Social History Smoking Status: Current every day smoker tobacco type: e-cigarettes alcohol intake: current alcohol intake frequency: a few times a week substance use type: does not use caffeine: Yes Type: carbonated beverages Number of servings: 2, coffee and tea ROS Const Const: Negative for fatigue, weakness, daytime sleepiness or difficulty sleeping ENT ENT: Negative for dizziness or Nosebleed/epistaxis Cardio Chest Pain: No Palpitations: No Edema: None Resp Respiratory: Negative for SOB with activity, SOB at rest, SOB orthopnea\SOB lying down or Cough GI GI: Negative nausea, vomiting or heartburn Neuro Neuro: Negative for dizziness, lightheadedness, near syncope or weakness Endo Endo: Negative for fatigue Cardiology Exam Const Appearance: cooperative, healthy appearing, comfortable and no acute distress Nutritional Appearance: well nourished and overweight Orientation: alert, awake and oriented x3 Head Head: normal to inspection Ears: hearing grossly normal bilaterally Nose: external nose normal Face and Sinus: face symmetric Mouth: moist mucous membranes Eyes General: appearance normal, both eyes and all related structures Eyelids: eyelids normal EOM: EOM intact bilaterally Neck Neck: normal visual inspection and no JVD Carotids: normal carotid upstroke Chest Chest inspection: normal inspection of the chest, symmetric chest movement and normal respiratory effort; Negative cough Auscultation: Bilateral: Clear to Auscultation Cardio Rate: regular rate Rhythm: regular rhythm Heart sounds: S1 normal and S2 normal; Negative rub, gallop or murmur GI GI: normal to inspection Neuro General: patient alert, patient awake, patient oriented x3 and CN's II-XI intact bilaterally Skin Skin: no rashes or lesions noted Extremities Pulses: Normal: Right Posterior Tibial Pulse, Left Posterior Tibial Pulse, Right Radial Pulse and Left Radial Pulse Lower Extremity Edema: None: Bilateral Psych Psychological: normal affect Supplemental Info Supplemental Information Echocardiogram 06/09/2021: Interpretation Summary Normal LV size. Left ventricular systolic function is normal. The estimated ejection fraction is 60 %. Pulmonary artery systolic pressure is 30 mmHg. Normal diastology for age. Cardiac Catheterization 06/09/21: CONCLUSIONS Severe disease of the posterior lateral vessel of the right coronary artery with mild disease noted in the left anterior descending artery and left circumflex artery CORONARY ANGIOGRAPHY DOMINANCE: Right Dominant LEFT HEART ASSESSMENT Left Ventricular Ejection Fraction: by LV Gram 60 % Normal LV wall motion Normal Left Ventricular systolic function LEFT MAIN: Angiographically normal LEFT ANTERIOR DESCENDING ARTERY: Mild 30% proximal left anterior descending artery stenosis CIRCUMFLEX ARTERY: First tiny obtuse marginal branch with ostial stenosis and mid circumflex artery with mild disease but no high-grade obstructive disease RIGHT CORONARY ARTERY: PROX RCA: 30 % Stenosis MID RCA: Mild luminal irregularities less than 30% RT PLV: 95 % Stenosis Assessment and Plan Assessment and Plan (1) History of coronary artery stent placement: Status: Chronic Comment: GNY-IUN-Sier RPLB w/ 2.25 x 18 mm Orsiro Stent 06/09/2021 Plan: Patient has a history of coronary artery disease. His most recent stress test from 01/18/2025 was noted to be abnormal, with evidence of inferolateral ischemia noted. Will proceed with a cardiac catheterization to further assess this. Depending on results, further recommendations will be made. Cardiac catheterization instructions were reviewed with patient, and he verbalizes understanding.
== END | disposition home or self-care (01) ==
LOC: CVS 06:26
PROVIDERS: Referring Provider Internal Medicine Cardiovascular Disease; Visit Provider Internal Medicine Cardiovascular Disease
DX: I25.10 Atherosclerotic heart disease of native coronary artery without angina pectoris (principal); Z95.5 Presence of coronary angioplasty implant and graft
CPT/HCPCS: 78452; 93017; A9500

== ENCOUNTER 2025-02-18 08:28 | Day surgery (SDC) | payer BC, SELFPAY ==
--- NOTE | 2025-01-25 16:12 | RAD_ITS ---
PROCEDURE: CHEST PA AND LATERAL 01/25/2025 REASON FOR EXAM: CARDIAC CATH TECHNIQUE: Procedure Code: RADCXR Modality: DX Procedure: CHEST PA AND LATERAL COMPARISON: None. FINDINGS: LUNGS AND PLEURA: The lungs are clear. No pleural effusion or pneumothorax. HEART AND MEDIASTINUM: The heart size and mediastinal contours are normal. BONES: No acute osseous abnormality. RAD/Chest PA and Lateral IMPRESSION: NO ACUTE FINDINGS. Reading Location: [id number]
[2025-01-25 16:59] LABS: Hematocrit 43.4 % (40-54); Hemoglobin 15.2 g/dL (13.0-16.5); Immature Granulocytes Count 0.020 X10^3/uL (0.0-0.0); Mean Corp Hgb Conc 35.0 g/dL (32-36); Mean Corpuscular Volume 85.3 fL (80-94); Mean Platelet Vol. 10.0 fl (6.2-12.0); NRBC Flagged by Analyzer 0 % (0-5); Platelet Count 198 K/mm3 (150-450); RBC Distribution Width CV 12.9 % (11.6-14.6); RBC Distribution Width SD 39.8 fl (35.1-43.9); Red Blood Count 5.09 M/mm3 (4.6-6.2); White Blood Count 7.9 K/mm3 (4.4-11.0)
[2025-01-25 17:39] LABS: Anion Gap 21 (5-15); BUN 9 mg/dL (4-19); BUN/Creat Ratio 10.2 RATIO (10-20); Calcium,Total 8.4 mg/dL (7.6-11.0); Carbon Dioxide 15.5 mmol/L (21.0-32.0); Chloride 100 mmol/L (98-108); Glucose 77 mg/dL (70-99); Potassium 4.6 mmol/L (3.3-5.1)
[2025-02-15 08:05] VITALS: BMI 27.3
--- NOTE | 2025-02-18 09:39 | CL.D_ITS ---
Patient Name: KANG SALMON Study Date: 02/18/2025 Performing: Rodríguez Baeza MD Ht: 72 inches 182.88 cm : 1980 Wt: 202.01 lbs 91.63 kg Age: 44 Gender: male BSA: 2.14 PROCEDURE(S) PERFORMED DC01-(46545)LHC/COR/LV CLINICAL PROFILE AND INDICATIONS Indications: Suspected CAD Heart Failure: None Stress/Imaging Date: 01/18/25Stress Test with SPECT MPI: Positive Low Risk CAD Presentations: No Sxs, no angina. CONCLUSIONS Previously placed stent in the right posterolateral branch is noted to be patent RECOMMENDATIONS Medical therapy DESCRIPTION OF PROCEDURE The patient arrived to the procedure lab. The risks and benefits of the procedure as well as a full description of our services here and current unavailability of surgical backup were fully explained to the patient and/or their significant other prior to the catheterization. The Timeout was completed, verifying the correct patient and procedure. The patient's procedural site was prepped and draped in the usual fashion. Local anesthetic was given subcutaneously to right radial region with Lidocaine 2%. Using a modified Seldinger technique, arterial access was obtained via the right radial artery, a 6Fr sheath was inserted. Right Coronary Artery selective angiography was then performed in multiple views using a 5 Fr. 4.0 Ira catheter. Left Coronary Artery selective angiography was performed in multiple views using a 5 Fr. 4.0 Ira catheter. Left Ventriculography was performed in CASTANEDA projection using a 5 Fr. Pigtail catheter. LV to AO pullback pressures were then recorded.The arterial sheath was pulled and a TR Band was applied for hemostasis CORONARY ANGIOGRAPHY DOMINANCE: Right Dominant LEFT HEART ASSESSMENT Left Ventricular Ejection Fraction: by LV Gram 55 % Normal LV wall motion Normal Left Ventricular systolic function LEFT MAIN: Angiographically normal LEFT ANTERIOR DESCENDING ARTERY: Mild luminal irregularities less than 30% CIRCUMFLEX ARTERY: Mild luminal irregularities less than 30% RIGHT CORONARY ARTERY: PROX RCA: Mild luminal irregularities less than 30% RT PLV: Previously placed stent is patent RT PDA: Proximal - Mild luminal irregularities COMPLICATIONS No Complications PROCEDURE MEDICATIONS Versed 1 mg IV Fentanyl 50 mcg IV Versed 1 mg IV Oxygen: 2 L/min via nasal cannula Heparin given IA 02/18/2025 09:20:07 Verapamil 2.5mg, Ntg 200mcgs, 2000 units of Heparin given IA 02/18/2025 09:20:07 SUMMARY OF HEMODYNAMIC DATA Time AIR REST ECG 08:43:12 AO 131/86 (104) SA 09:20:52 LV 134/12, 15 09:28:16 LV 138/14, 21 09:28:24 LV 121/10, 27 09:29:05 LV 131/13, 18 09:29:13 LVp 128/13, 18 09:29:17 AOp 135/82 (108) 09:29:24 Signed By Rodríguez Baeza MD On 02/18/2025 09:38:54 Rodríguez Baeza MD
== END 2025-02-18 11:05 | disposition home or self-care (01) ==
PROVIDERS: Nurse Practitioner Gerontology; Referring Provider Internal Medicine Cardiovascular Disease; Visit Provider Internal Medicine Cardiovascular Disease
DX: I25.10 Atherosclerotic heart disease of native coronary artery without angina pectoris (principal); F17.290 Nicotine dependence, other tobacco product, uncomplicated; Z95.5 Presence of coronary angioplasty implant and graft
CPT/HCPCS: 36415; 71046; 80048; 85025; 93458; 99152; 99153; Q9967; C1769; C1894